=== PATIENT | female | born 2000 | race Caucasian/White ===

== ENCOUNTER → 2023-07-06 14:52 | Outpatient (BNVA) | payer OTHER, SELFPAY | PROVIDERS: Visit Provider Emergency Medicine | DX: Z20.5 Contact with and (suspected) exposure to viral hepatitis (principal); Z77.21 Contact with and (suspected) exposure to potentially hazardous body fluids | CPT/HCPCS: 82977; 83615; 84450; 84460; 86705; 86706; 86709; 86803; 87340; 87806 ==